=== PATIENT | male | born 1975 | race African-American/Black ===

== ENCOUNTER 2017-02-06 15:11 | Emergency (ER) | payer BC ==
[~2017-02-06] VITALS: Ht 185.4 cm; Wt 93.4 kg
[2017-02-06] MEDS ORDERED: Mylanta II UD 30ml ORAL ONE (15:45)
[2017-02-06] MEDS ORDERED: Dicyclomine HCl 10mg/5ml oral soln ORAL ONE (15:45)
[2017-02-06] MEDS ORDERED: Lidocaine 2% Visc 15ml soln ORAL ONE (15:45)
[2017-02-06] MEDS ORDERED: PEPCID40 MG PO (16:14)
[2017-02-06] MEDS ORDERED: OMEPRAZOLE20 M3 ORAL (16:14)
[2017-02-06 16:23] VITALS: BP 150/96
[2017-02-06 16:26] VITALS: BP 145/89
--- NOTE | 2017-02-06 16:51 | Emergency Room Report ---
History of Present Illness General Chief Complaint: Back Pain-No Injury Source: Patient Present Illness HPI The patient is a 42-year-old male with a history of GERD presenting for a burning of the chest and back. Patient states that he was diagnosed with GERD a few years ago but has not taken any ongoing medications for it. He states that he has experienced a burning sensation of the mid chest and back which has been on and off for the past week. It is now described as a 5/10 burning. Pain worse with swallowing and eating. The pain began at the chest and has now radiated to the mid back. Patient denies any other symptoms including nausea, vomiting, fever, chills, cough, hemoptysis, hematemesis, constipation, diarrhea , shortness of breath Allergies: Coded Allergies: No Known Allergies (Unverified , 02/06/17) Patient History Past Medical History: see triage record Pertinent Family History: none Reviewed Nursing Documentation: PMH: Agreed, PSxH: Agreed Nursing Documentation-PMH Past Medical History: No History, Except For Hx Hypertension: Yes Review of Systems All Other Systems: negative except mentioned in HPI Physical Exam Vital Signs Date Time Temp Pulse Resp B/P Pulse Ox O2 Delivery O2 Flow Rate FiO2 02/06/17 15:29 99.5 100 18 150/96 100 Room Air Sp02 EP Interpretation: reviewed, normal General Appearance: no apparent distress, alert, GCS 15, non-toxic Head: normocephalic, atraumatic Eyes: bilateral eye PERRL, bilateral eye normal inspection ENT: hearing grossly normal, normal pharynx, no angioedema, normal voice Neck: full range of motion, supple/symm/no masses Respiratory: chest non-tender, lungs clear, normal breath sounds, no wheezing, speaking full sentences Cardiovascular #1: regular rate, rhythm, no edema Gastrointestinal: normal bowel sounds, non tender, soft, non-distended, no guarding, no rebound Musculoskeletal: back normal, gait/station normal, normal range of motion, non- tender Neurologic: alert, oriented x3, responsive, motor strength/tone normal, sensory intact, speech normal Psychiatric: judgement/insight normal, memory normal, mood/affect normal, no suicidal/homicidal ideation Skin: normal color, no rash, warm/dry, well hydrated Lymphatic: no adenopathy Medical Decision Making PA Attestation Dr. Baptiste is my supervising physician. Patient management was discussed with my supervising physician Diagnostic Impression: Primary Impression: GERD (gastroesophageal reflux disease) Qualified Codes: K21.9 - Gastro-esophageal reflux disease without esophagitis ER Course The patient is a 42-year-old male with a history of GERD presenting for a burning of the chest and back Differential diagnoses considered but not limited to: GERD, gastritis, gastroenteritis, bronchitis Physical exam: Vitals within normal limits per no apparent distress HEENT exam is unremarkable Lungs are clear to auscultation bilaterally Regular rate and rhythm Abdomen is soft and nontender. Chest is nontender The patient is given a GI cocktail and does feel better He'll be discharged home with a prescription for Pepcid and omeprazole. He needs to followup with PMD. ER precautions are given Last Vital Signs Date Time Temp Pulse Resp B/P Pulse Ox O2 Delivery O2 Flow Rate FiO2 02/06/17 16:26 99.0 68 18 145/89 100 Room Air Status: improved Disposition: HOME, SELF-CARE Condition: Improved Scripts Omeprazole (OMEPRAZOLE) 20 Mg Tablet.dr 20 MG ORAL DAILY, #15 TAB Prov: TONYA TURNER 02/06/17 Famotidine (PEPCID) 40 Mg Tablet 40 MG PO DAILY, #7 TAB 0 Refills Prov: TONYA TURNER 02/06/17 Patient Instructions: Food Choices for Gastroesophageal Reflux Disease, Adult, Indigestion Additional Instructions: I discussed my findings with the patient. All questions and concerns have been answered. Treatment and medication compliance have been addressed. I advised the patient that they need to follow up with PMD in 3-5 days. Return to ED if symptoms worsen, new symptoms arise, or if needed for any reason. Patient verbalized understanding of discharge instructions. TONYA TURNER February 06, 2017 16:51
== END 2017-02-06 16:26 | disposition home or self-care (01) ==
LOC: EMR 15:56
DX: K21.9 Gastro-esophageal reflux disease without esophagitis (principal); I10 Essential (primary) hypertension
CPT/HCPCS: 99284

== ENCOUNTER 2019-06-27 15:37 | Emergency (ER) | payer BC ==
[~2019-06-27] VITALS: Ht 185.4 cm; Wt 94.3 kg
[~2019-06-27 15:37] MED LIST: OMEPRAZOLE20 M3 ORAL; PEPCID40 MG PO
--- NOTE | 2019-06-27 16:05 | NUR ---
ED Nurse Note: patient walked into ED from home c/o pressure-like pain on the left chest for the past few days. patient denies any injury. patient is a/o x 4 ambulatory, breathing unlabored and even, speaking in full sentences. patient denies any N/V or SOB.
[2019-06-27] MEDS ORDERED: Lidocaine 2% Visc 15ml soln ORAL ONE (16:15)
[2019-06-27] MEDS ORDERED: Mylanta II UD 30ml ORAL ONE (16:15)
--- NOTE | 2019-06-27 16:16 | Emergency Room Report ---
History of Present Illness General Chief Complaint: Chest Pain Source: Patient Present Illness HPI 44-year-old male presents to the emergency department complaining of6/10 in severity pressure and burning sensation to the left side of his chest x3 days. Patient reports initially his symptoms were intermittent however he states his symptoms are now lingering longer than they were at onset of his symptoms. Denies radiation to the back. He reports intermittent radiation up the midline. Patient reports high blood pressure history he denies any cardiac history otherwise denies familial cardiac history. Patient denies cough, fevers, chills he reports history of acid reflux in the past. Patient reports no relief with phnc-din-cocadmc Pepcid. Patient reports history of HIV. Denies hemoptysis. Patient reports some increased anxiety due to his symptoms and he states he is not sure whether this is attributing to his symptoms becoming more frequent. He denies radiation of his pain. He denies rash, trauma or fall. Patient denies any relieving factors. He denies palpitations, shortness of breath, dyspnea or recent illness. Denies recent travel. Allergies: Coded Allergies: No Known Allergies (Unverified , 02/06/17) Patient History Past Medical History: see triage record Past Surgical History: none Pertinent Family History: none Reviewed Nursing Documentation: PMH: Agreed; PSxH: Agreed Nursing Documentation-PMH Past Medical History: No History, Except For Hx Hypertension: Yes Review of Systems All Other Systems: negative except mentioned in HPI Physical Exam Vital Signs Date Time Temp Pulse Resp B/P (MAP) Pulse Ox O2 Delivery O2 Flow Rate FiO2 06/27/19 15:56 98.4 16 18 143/98 (113) 99 Room Air Sp02 EP Interpretation: reviewed, normal General Appearance: well appearing, no apparent distress, alert, GCS 15, non- toxic Head: normocephalic, atraumatic Eyes: bilateral eye normal inspection, bilateral eye PERRL ENT: hearing grossly normal, normal voice Neck: full range of motion Respiratory: chest non-tender, lungs clear, normal breath sounds, no respiratory distress, no accessory muscle use, no wheezing, speaking full sentences Cardiovascular #1: regular rate, rhythm, no edema, normal capillary refill Cardiovascular #2: 2+ radial (R), 2+ radial (L) Gastrointestinal: non tender, soft Musculoskeletal: gait/station normal, normal range of motion, non-tender Neurologic: alert, oriented x3, responsive, motor strength/tone normal, sensory intact, speech normal, grossly normal Psychiatric: judgement/insight normal Skin: no rash Lymphatic: no adenopathy Medical Decision Making PA Attestation Dr. Salgado Is my supervising Physician whom patient management has been discussed with. Diagnostic Impression: Primary Impression: Nonspecific chest pain Additional Impression: Acid reflux Qualified Codes: K21.9 - Gastro-esophageal reflux disease without esophagitis ER Course 44-year-old male presents to the emergency department complaining of6/10 in severity pressure and burning sensation to the left side of his chest x3 days. Patient reports initially his symptoms were intermittent however he states his symptoms are now lingering longer than they were at onset of his symptoms. Denies radiation to the back. He reports intermittent radiation up the midline. Patient reports high blood pressure history he denies any cardiac history otherwise denies familial cardiac history. Patient denies cough, fevers, chills he reports history of acid reflux in the past. Patient reports no relief with [id number] Pepcid. Patient reports history of HIV. Denies hemoptysis. Patient reports some increased anxiety due to his symptoms and he states he is not sure whether this is attributing to his symptoms becoming more frequent. He denies radiation of his pain. He denies rash, trauma or fall. Patient denies any relieving factors. He denies palpitations, shortness of breath, dyspnea or recent illness. Denies recent travel. Ddx considered but are not limited to GERD, [place], pneumonia, contusion, costochondritis, PE, ACS, Shoulder strain, pericarditis Chest wall contusion or aortic dissection just to name a few. Vital signs: are WNL, pt. is afebrile H&PE are most consistent with possible GERD due to radiation of burning sensation up the midline. Pt. is non-toxic in appearance, and in NAD. ORDERS: - EK BPM NSR - CXR: Unremarkable ED INTERVENTIONS: - lidocaine PO, Mylanta, pepcid PO --Upon re-assessment after above interventions pt. reports that his pain has subsided. -I do not identify an emergent condition at this time. With current presentation , pt. is stable for close outpatient follow up and conservative treatment. D/ w pt. to return promptly to ED with worsening or new symptoms.- Pt. verbalizes' understanding and agreement with proposed treatment plan. DISCHARGE: At this time pt. is stable for d/c to home. Will provide printed patient care instructions, and any necessary prescriptions. Care plan and follow up instructions have been discussed with the patient prior to discharge. EKG Diagnostic Results EP Interpretation: Dr. Salgado Rate: normal - 85 bpm Rhythm: NSR ST Segments: no acute changes ASA given to the pt in ED: No PA Scribe Text This Interpretation was scribed by MARY ELLEN Steinberg. Chest X-Ray Diagnostic Results Chest X-Ray Diagnostic Results : Chest X-Ray Ordered: Yes # of Views/Limited/Complete: 1 View Indication: Chest Pain EP Interpretation: Yes PA Xray: Interpretation reviewed, by supervising MD, and agrees with findings. Interpretation: no consolidation, no effusion, no pneumothorax, no acute cardiopulmonary disease Impression: No acute disease Electronically Signed by: Celeste Steinberg PA-C Last Vital Signs Date Time Temp Pulse Resp B/P (MAP) Pulse Ox O2 Delivery O2 Flow Rate FiO2 06/27/19 15:56 98.4 16 18 143/98 (113) 99 Room Air Disposition: HOME, SELF-CARE Condition: Stable Scripts Omeprazole (OMEPRAZOLE) 40 Mg Capsule.dr 40 MG ORAL DAILY for 10 Days, #10 CAP Prov: Celeste Steinberg 06/27/19 Famotidine (FAMOTIDINE) 40 Mg Tablet 40 MG ORAL EVERY 12 HOURS for 7 Days, #14 TAB 0 Refills Prov: Celeste Steinberg 06/27/19 Patient Instructions: Nonspecific Chest Pain, Heartburn Additional Instructions: Take medications as directed. Follow up with a Primary Care Provider in 3-5 days, even if your symptoms have resolved. --Please review list of primary care clinics, if you do not already have a primary care provider Return sooner to ED if new symptoms occur, or current symptoms become worse. - Please note that this Emergency Department Report was dictated using [employer] hand technology software, occasionally this can lead to erroneous entry secondary to interpretation by the dictation equipment. Celeste Steinberg Jun 27, 2019 16:16
[2019-06-27] MEDS ORDERED: OMEPRAZOLE40 M1 ORAL (17:11)
[2019-06-27] MEDS ORDERED: FAMOTIDINE40 MG ORAL (17:11)
[2019-06-27 17:19] VITALS: BP 143/98
--- NOTE | 2019-06-27 17:21 | NUR ---
ER DISCHARGE NOTE: Patient is cleared to be discharged per ELISSA ESPINOZA, pt is aox4, on room air, with stable vital signs. pt was given dc and prescription instructions, pt was able to verbalize understanding, pt id band removed without complications. pt is able to ambulate with steady gait. pt took all belongings.
--- NOTE | 2019-06-28 11:56 | Diagnostic Imaging Report ---
Indication: Chest pain Comparison: None A single view chest radiograph was obtained. Findings: Cardiomediastinal appearance is within normal limits for age. The lungs are clear. Pulmonary vascularity is appropriate. The diaphragmatic contour is smooth and costophrenic angles are sharp. No pleural effusions are identified. The bones are unremarkable. Impression: No acute findings
== END 2019-06-27 17:21 | disposition home or self-care (01) ==
LOC: EMR 17:10
DX: R07.9 Chest pain, unspecified (principal); K21.9 Gastro-esophageal reflux disease without esophagitis; I10 Essential (primary) hypertension; B20 Human immunodeficiency virus [HIV] disease; F41.9 Anxiety disorder, unspecified
CPT/HCPCS: 71045; 99283